=== PATIENT | female | born 1960 | race Caucasian/White ===

== ENCOUNTER 2020-04-05 12:28 | Outpatient (CLI) | payer OTHER, SELFPAY ==
--- NOTE | ~2020-04-05 | XR_ITS ---
EXAMINATION: XR knee RT 2V DATE: 04/05/2020 13:00 INDICATION: Right knee pain. TECHNIQUE: 2 views of right knee were obtained. COMPARISON: None. FINDINGS: Bone alignment is normal. No fracture. There is mild tricompartmental osteoarthritis. No kn ee joint effusion. IMPRESSION: 1. Mild right knee osteoarthritis. Reviewed, dictated and finalized at location A.
--- NOTE | ~2020-04-05 | XR_ITS ---
EXAMINATION: XR knee LT 2V DATE: 04/05/2020 13:00 INDICATION: Left knee pain. TECHNIQUE: 2 views of left knee were obtained. COMPARISON: None. FINDINGS: Bone alignment is normal. No fracture. There is mild tricompartmental osteoarthritis. No kn ee joint effusion. IMPRESSION: 1. Mild left knee osteoarthritis. Reviewed, dictated and finalized at location A.
[2020-04-05 12:59] LABS: D Dimer 0.43 ug/mL (<0.48)
[2020-04-05 13:00] LABS: Blood Urea Nitrogen 13 mg/dL (7-17); Calcium 8.9 mg/dL (8.4-10.2); Carbon Dioxide 31 mmol/L (22-30); Chloride 102 mmol/L (98-107); Estimated Glomerular Filt Rate > 60; Glucose 95 mg/dL (65-105); Potassium 4.4 mmol/L (3.4-5.0); Sodium 137 mmol/L (137-145)
== END 2020-04-05 12:29 | disposition home or self-care (01) ==
PROVIDERS: PCP Family Medicine; Visit Provider Family Medicine
DX: M17.0 Bilateral primary osteoarthritis of knee (principal)
CPT/HCPCS: 36415; 73560; 80048; 83735; 85380

== ENCOUNTER → 2020-06-15 16:27 | Outpatient (CLI) | payer OTHER, SELFPAY ==
--- NOTE | ~2020-06-15 | XR_ITS ---
EXAMINATION: XR chest 2V DATE: 06/15/2020 16:40 INDICATION: Asthma. Encounter for other preprocedural examination. TECHNIQUE: Frontal and lateral views of the chest were obtained. COMPARISON: Chest single view 01/13/2020 FINDINGS: The lung volumes are normal. There are airspace and interstitial opacities in the perihilar regions and lower lung zones. There is mild scarring at right lung apex. No pleural effusion or pneu mothorax. The heart size is normal. Surgical clips in the right upper quadrant are likely from cholec ystectomy. IMPRESSION: 1. Stable diffuse lung disease, likely chronic interstitial lung disease. Reviewed, dictated and finalized at location B.
== END ==
PROVIDERS: PCP Family Medicine; Visit Provider Family Medicine
DX: Z01.818 Encounter for other preprocedural examination (principal); J84.9 Interstitial pulmonary disease, unspecified
CPT/HCPCS: 71046

== ENCOUNTER 2020-08-18 13:23 | Outpatient (CLI) | payer OTHER, SELFPAY ==
[2020-08-18 14:33] LABS: NT Pro B Type Natriuretic Pept 195 PG/ML (5-100)
[2020-08-23 19:58] LABS: CRP, High Sensitivity 2.4 mg/L (***)
== END 2020-08-18 13:24 | disposition home or self-care (01) ==
LOC: ANHLAB 13:24
PROVIDERS: PCP Family Medicine; Visit Provider Internal Medicine Critical Care Medicine
DX: R09.02 Hypoxemia (principal); J84.9 Interstitial pulmonary disease, unspecified
CPT/HCPCS: 36415; 83880; 86141; 86331; 86606; 86609

== ENCOUNTER 2020-08-23 06:30 | Outpatient (CLI) | payer OTHER, SELFPAY ==
--- NOTE | ~2020-08-23 | CT_ITS ---
EXAMINATION: CT chest high resolution wo mt DATE: 08/23/2020 06:46 INDICATION: J84.9 - Interstitial pulmonary disease, unspecified TECHNIQUE: Computed tomography (CT) of the chest was performed without intravenous contrast. Addition al 3D reconstructions utilizing coronal maximum intensity projection (MIP) were performed. Automated exposure control and iterative reconstruction technique were employed. The dose-length product was 37 9.10 mGy-cm. COMPARISON: None FINDINGS: Scattered peripheral and lower lung predominant groundglass and irregular reticular opacities with as sociated mild bronchiectatic changes in the regions of the affected lung. No definitive honeycombing. There are a pair of 6 mm nodules in the right lower lobe, 5 mm nodule in the right middle lobe, 4 mm nodules along the left and right major fissures and 3 mm nodule in the left upper lobe. There are a few scattered tiny calcified nodules consistent with old granulomatous disease. No pleural effusion. Heart size is normal. No pericardial effusion. Minimal atherosclerotic coronary artery calcification. Thoracic aorta is normal in caliber. A few mildly enlarged mediastinal lymph nodes nodes the largest a right paratracheal lymph node measuring 1.5 cm in maximal short axis diameter. Cholecystectomy cli ps at the gallbladder fossa. A few parapelvic cysts at the upper pole the right kidney. IMPRESSION: 1. Peripheral and lower lung predominant groundglass and reticular opacities with associated bronchie ctasis with pattern favoring nonspecific interstitial pneumonia (NSIP) over usual interstitial pneumo stan (UIP) chronic interstitial lung disease. 2. A few scattered small pulmonary nodules measuring up to 6 mm. Recommend follow-up low-dose noncont rast chest CT in 6-12 months. Reviewed, dictated and finalized at location A. IMPRESSION: 1. Peripheral and lower lung predominant groundglass and reticular opacities wi th associated bronchiectasis with pattern favoring nonspecific interstitial pne umonia (NSIP) over usual interstitial pneumonia (UIP) chronic interstitial lung disease. 2. A few scattered small pulmonary nodules measuring up to 6 mm. Recommend foll ow-up low-dose noncontrast chest CT in 6-12 months.
== END 2020-08-23 06:31 | disposition home or self-care (01) ==
PROVIDERS: PCP Family Medicine; Visit Provider Internal Medicine Critical Care Medicine
DX: J84.9 Interstitial pulmonary disease, unspecified (principal); R91.8 Other nonspecific abnormal finding of lung field
CPT/HCPCS: 71250

== ENCOUNTER 2020-08-31 13:27 | Outpatient (CLI) | payer OTHER, SELFPAY ==
[2020-08-31 13:50] VITALS: PULSE 100; O2SAT 95
[2020-08-31 13:55] VITALS: PULSE 109; O2SAT 86
[2020-08-31 14:00] VITALS: PULSE 111; O2SAT 87
[2020-08-31 14:05] VITALS: PULSE 117; O2SAT 91
[2020-08-31 14:15] VITALS: PULSE 101; O2SAT 94
--- NOTE | 2020-08-31 14:18 | HOMEO2EVAL ---
Home Oxygen Evaluation RC: Home Oxygen (O2) Evaluation Start: 08/31/20 14:15 Freq: Status: Active Protocol: RPE Activity Type Activity Date Activity User E-Sign Co-Sign Detail Recorded Client Recorded Date Recorded By Document 08/31/20 13:50 [email or web address] [email or web address] 08/31/20 14:18 KMV Document 08/31/20 13:55 KMV [email or web address] 08/31/20 14:18 KMV Document 08/31/20 14:00 KMV [email or web address] 08/31/20 14:18 KMV Document 08/31/20 14:05 [email or web address] [email or web address] 08/31/20 14:18 KMV Document 08/31/20 14:15 KMV [email or web address] 08/31/20 14:18 KMV 08/31/20 08/31/20 08/31/20 13:50 13:55 14:00 Home O2 Evaluation Test Phase Resting Exercise Exercise Oxygen Delivery Room Air Room Air Nasal Cannula Oxygen Flow Rate (L/min) 1 Pulse Oximetry (90-100 %) 95 86 L 87 L Pulse Rate (60-100 beats/min) 100 109 H 111 H Activity Tolerance Ambulation Distance (feet) Treatment Charges O2 Evaluation 08/31/20 08/31/20 14:05 14:15 Home O2 Evaluation Test Phase Exercise Resting Oxygen Delivery Nasal Cannula Room Air Oxygen Flow Rate (L/min) 2 Pulse Oximetry (90-100 %) 91 94 Pulse Rate (60-100 beats/min) 117 H 101 H Activity Tolerance Good Ambulation Distance (feet) 1,000 Treatment Charges
--- NOTE | 2020-08-31 14:41 | ECHO_ITS ---
Patient Info Name: Nara Zhou Age: 60 years : 1960 Gender: Female Ht: 62 in Wt: 225 lbs BSA: 2.17 m2 HR: 85 bpm BP: 159 / 95 mmHg Heart Rhythm: Sinus Rhythm Technical Quality: Good Exam Date: 08/31/2020 2:50 PM Exam Location: [facility] Patient Status: Outpatient Admit Date: 08/31/2020 Staff Ordering Physician: Tameka Snyder MD [employer] Operator Helper: Flaco Lara RDCS Attending Provider: Tameka Snyder MD Referring Physician: Lillian DICKENS; Exam Type: CA echo doppler color flow Study Info Indications J96.91 - Respiratory failure, unspecified with hypoxia Complete two-dimensional, color flow and Doppler transthoracic echocardiogram is performed. History/Risk Factors Hypoxemia; Interstitial lung disease. Summary 1. Complete two-dimensional, color flow and Doppler transthoracic echocardiogram is performed. 2. Left ventricular chamber dimension is normal. 3. Left ventricular systolic function is normal, estimated at 65-70%. 4. The left ventricular diastolic function is grade I diastolic dysfunction. 5. E/e' 8 is minimally elevated. 6. The mitral valve has mildly calcified annulus. Left Ventricle E/e' 8 is minimally elevated. Left ventricular chamber dimension is normal. Left ventricular systolic function is normal, estimated at 65-70%. The left ventricular diastolic function is grade I diastolic dysfunction. Right Ventricle Right ventricular systolic function is normal with TAPSE at 1.7 cm. Right ventricular chamber dimension is normal. Left Atria Left atrial chamber dimension is normal. Right Atria Right atrial chamber dimension is normal. Aortic Valve The aortic valve is probable trileaflet. There is no aortic valve stenosis. There is no aortic valve regurgitation. Pulmonic Valve There is no pulmonic regurgitation. Mitral Valve The mitral valve has mildly calcified annulus. There is no mitral valve stenosis. There is no mitral valve regurgitation. Tricuspid Valve There is no tricuspid valve regurgitation. Pericardium/Pleural There is no pericardial effusion. Inferior Vena Cava Normal inferior vena cava with >50% collapse upon inspiration consistent with normal right atrial pressure, 5 mmHg. Aorta The aortic root size at the sinus of Valsalva is normal. Left Ventricular Outflow Tract Name Value Normal LVOT 2D LVOT Diameter 1.8 cm LVOT Doppler LVOT Peak Gradient 5 mmHg LVOT Mean Gradient 3 mmHg LVOT VTI 21 cm LVOT VTI/AV VTI Ratio 0.8 LVOT Stroke Volume 56 ml LVOT CO 4.6 l/min LVOT CI 2.1 l/min/m2 Mitral Valve Name Value Normal MV Doppler MV Decel Treutlen
--- NOTE | 2020-09-04 11:50 | WPDPFTINT ---
PFT Interpretation PFT Interpretation: This PFT met all criteria for ATS standards and reproducibility FEV/FVC post bronchodilator 86% FEV1 62% or 1.28 liters FVC 53% or 1.49 liters TLC 50% or 2.24 liters RV 49% RV/TLC 37% DLCO 39% when adjusted for alveolar volume but not adjusted for hemoglobin Flow volume loops showed a restrictive pattern Impression: A restrictive ventilatory defect is present. This pattern is suggestive of Interstitial Lung Disease. Clinical correlation is advised.
== END 2020-08-31 13:28 | disposition home or self-care (01) ==
LOC: ANHPFT 13:28
PROVIDERS: PCP Family Medicine; Visit Provider Internal Medicine Critical Care Medicine
DX: J84.9 Interstitial pulmonary disease, unspecified (principal); R94.2 Abnormal results of pulmonary function studies
CPT/HCPCS: 93306; 94060; 94618; 94726; 94729